=== PATIENT | female | born 1960 | race Two or more races ===

== ENCOUNTER 2017-10-15 13:06 | Emergency (ER) | payer SELFPAY ==
[2017-10-15 13:26] VITALS: BP 132/80
[2017-10-15] MEDS ORDERED: Tetan/Diph/Pertus SYR(Tdap)* 0.5 ML SYR(BOOSTRIX) use SYR IM ONE (13:44)
--- NOTE | 2017-10-15 14:11 | ED ---
Adult Trauma - HPI Summary HPI Summary: This patient is a 57 year old F presenting to [facility] with a chief complaint of head injury since 1250. She endorses a forehead laceration, HE, an abrasion with pain in left knee, abrasion on right knee, and abrasion on right arm. Pt endorses full ROM in left knee, Pt denies LOC, back pain, neck pain. - History of Current Complaint Chief Complaint: EDTraumaMultiple Stated Complaint: FACIAL LACERATION/MHE Time Seen by Provider: 10/15/17 13:38 Hx Obtained From: Patient Mechanism of Injury: Blunt Trauma, Fall Ambulatory at the Scene: Yes Loss of Consciousness: no loss of consciousness Onset/Duration: Started Hours Ago Onset of Pain: Immediate, Post Accident, Prior to Arrival Onset Severity: Moderate Current Severity: Moderate Pain Intensity: 7 Pain Scale Used: 0-10 Numeric Location: Head, Extremities Aggravating Factor(s): Palpation Alleviating Factor(s): Nothing Associated Signs & Symptoms: Negative: Chest Pain, Abdominal Pain, Fever, Loss of Consciousness PMH/Surg Hx/FS Hx/Imm Hx Sensory History: Denies: Hx Contacts or Glasses, Hx Legally Blind, Hx Deafness Opthamlomology History: Denies: Hx Contacts or Glasses, Hx Legally Blind EENT History: Denies: Hx Deafness Psychiatric History: Denies: Hx Panic Disorder - Immunization History Immunizations Up to Date: Yes Infectious Disease History: No Infectious Disease History: Denies: Traveled Outside the [place] in Last 30 Days - Family History Known Family History: Negative: Blood Disorder - Social History Alcohol Use: None Substance Use Type: Reports: None Smoking Status (MU): Never Smoked Tobacco Review of Systems Negative: Fever Positive: Erythema, Other - periorbital swelling Negative: Chest Pain Positive: Edema. Negative: Arthralgia - neck, Decreased ROM Positive: Bruising, Other - laceration forehead, abrasions bilateral knees, right forearm Positive: Headache All Other Systems Reviewed And Are Negative: Yes Physical Exam - Summary Physical Exam Summary: Appearance: Well appearing, no pain distress Skin: warm, dry, reflects adequate perfusion, 4 cm laceration over left eyeball , abrasion on both knees, abrasion on right forearm. Head/face: normal Eyes: EOMI, GERARD ENT: normal Neck: supple, non-tender Respiratory: CTA, breath sounds present Cardiovascular: RRR, pulses symmetrical Abdomen: non-tender, soft Bowel: present Musculoskeletal: normal, strength/ROM intact Neuro: normal, sensory motor intact, A&Ox3 Triage Information Reviewed: Yes Vital Signs On Initial Exam: Initial Vitals Temp Pulse Resp BP Pulse Ox 98 F 96 16 132/80 98 10/15/17 13:08 10/15/17 13:08 10/15/17 13:08 10/15/17 13:08 10/15/17 13:08 Vital Signs Reviewed: Yes Procedures - Laceration/Wound Repair 1 Location: face - forehead Anesthesia: Local, 1.0%, Lido Betadine Prep?: Yes Laceration/Wound Explored: clean Suture Type: Nylon Number of Sutures: 7 Sterile Dressing Applied?: Yes Diagnostics - Vital Signs Vital Signs Temp Pulse Resp BP Pulse Ox 10/15/17 13:08 98 F 96 16 132/80 98 - Laboratory Lab Statement: Any lab studies that have been ordered have been reviewed, and results considered in the medical decision making process. Re-Evaluation - Re-Evaluation First Eval Re-Evaluation Time: 14:10 Comment: rechecked wounds, bandages. discussed sutures. Adult Trauma Course/Dx - Course Course Of Treatment: Pt refused all imaging. - Diagnoses Provider Diagnoses: Head injury, Laceration of face, Laceration of knee, Abrasion of right forearm Discharge - Sign-Out/Discharge Documenting (check all that apply): Patient Departure - departing AMA - Discharge Plan Condition: Fair Disposition: AGAINST MEDICAL ADVICE Prescriptions: Cephalexin CAP* [Keflex CAP*] 500 mg PO TID #21 cap Patient Education Materials: Laceration (ED), Head Injury (ED), Abrasion (ED) [facility]] - 3 Days Additional Instructions: Schedule a wound check in 3 days with your primary care physician or in the emergency department, and an appointment for suture removal in 7 DAYS with your primary care physician or at the emergency department. RETURN TO EMERGENCY DEPARTMENT FOR ANY NEW OR WORSENING SYMPTOMS. - Billing Disposition and Condition Condition: FAIR Disposition: Against Medical Advice
[2017-10-15] MEDS ORDERED: Lidocaine 1% MPF wEPI 200,000* 30 ML SDV INJ ONE (14:41)
[2017-10-15] MEDS ORDERED: Lidocaine 2% EPI 1:200000 MPF*10-20 ML VIAL ONE (14:43)
== END 2017-10-15 15:49 | disposition left against medical advice (07) ==
LOC: ED 13:06
DX: S09.90XA Unspecified injury of head, initial encounter (principal); S01.81XA Laceration without foreign body of other part of head, initial encounter; S80.212A Abrasion, left knee, initial encounter; S80.211A Abrasion, right knee, initial encounter; S50.811A Abrasion of right forearm, initial encounter; W01.0XXA Fall on same level from slipping, tripping and stumbling without subsequent striking against object, initial encounter; Y93.9 Activity, unspecified; Y92.480 Sidewalk as the place of occurrence of the external cause
CPT/HCPCS: 12013; 99282; J2001